=== PATIENT | male | born 1965 | race Caucasian/White ===

== ENCOUNTER 2017-07-24 01:26 | Emergency (ER) | payer SELFPAY ==
[~2017-07-24] VITALS: Ht 185.4 cm; Wt 97.7 kg
[~2017-07-24 01:26] MED LIST: FLOMAX 0.40.4 MG/CAP PO; INDERAL40 MG PO; PROTONIX 40MG T40 MG PO
[2017-07-24 01:37] VITALS: BP 146/92; TEMP 98.7
[2017-07-24] MEDS ORDERED: NORCO 325 MG-51 TAB PO (04:03)
[2017-07-24] MEDS ORDERED: VOLTAREN 75 DR75 MG PO (04:03)
[2017-07-24] MEDS ORDERED: FLEXERIL 1010 MG/TAB PO (04:03)
[2017-07-24 04:24] VITALS: PULSE 72
== END 2017-07-24 04:26 | disposition home or self-care (01) ==
LOC: COL.ER 01:26
DX: S39.012A Strain of muscle, fascia and tendon of lower back, initial encounter (principal); M54.16 Radiculopathy, lumbar region; F17.200 Nicotine dependence, unspecified, uncomplicated; X58.XXXA Exposure to other specified factors, initial encounter; Y93.H1 Activity, digging, shoveling and raking; Y92.69 Other specified industrial and construction area as the place of occurrence of the external cause; Y99.0 Civilian activity done for income or pay
CPT/HCPCS: J1885; J7512

== ENCOUNTER 2017-08-15 08:05 | Outpatient (RCR) | payer OTHER ==
[~2017-08-15 08:05] MED LIST changes: +FLEXERIL 1010 MG/TAB PO; +NORCO 325 MG-51 TAB PO; +VOLTAREN 75 DR75 MG PO
== END 2017-11-13 | disposition still patient (30) ==
LOC: WSOH
DX: M51.36 Other intervertebral disc degeneration, lumbar region (principal); M43.06 Spondylolysis, lumbar region